=== PATIENT | male | born 1940 | race Caucasian/White ===

== ENCOUNTER 2024-06-08 19:36 | Observation (INO) ==
[2024-06-08] MEDS ORDERED: IOPAMIDOL 100 ML BOTTLE IV ONE ×2 (19:37→21:57)
[2024-06-08] MEDS: fentaNYL 100 MCG/2 ML VIAL IV ONE (20:08)
[2024-06-08 20:21] LABS: Basophils # (Auto) 0.02 K/mcL (0.00-0.30); Basophils % (Auto) 0.4 % (0.0-2.0); Eosinophils # (Auto) 0.14 K/mcL (0.00-0.70); Eosinophils % (Auto) 2.8 % (0.0-7.0); Hematocrit 32.7 % (40.1-51.0); Lymphocytes # (Auto) 1.57 K/mcL (1.50-4.80); Lymphocytes % (Auto) 31.2 % (15.5-49.0); Mean Cell Volume 89.6 fL (80.0-100.0); Mean Corpuscular HGB Conc 30.6 g/dL (31.0-36.0); Mean Platelet Volume 10.8 fL (8.8-12.5); Monocytes # (Auto) 0.65 K/mcL (0.10-0.90); Monocytes % (Auto) 12.9 % (1.0-12.0); Neutrophils % (Auto) 51.9 % (38.0-78.0); Platelet Count 220 K/mcL (140-440); RBC 3.65 M/mcL (4.63-6.08); Red Cell Distribution Width 18.3 % (11.5-14.5)
[2024-06-08 20:33] LABS: ALT/SGPT 28 U/L (<40); AST/SGOT 38 U/L (<40); Albumin 4.3 gm/dL (3.2-5.2); Albumin/Globulin Ratio 1.8 (1.0-2.3); Alkaline Phosphatase 113 U/L (39-117); Bilirubin,Total < 0.2 mg/dL (0.1-1.0); Blood Urea Nitrogen 13 mg/dL (8-23); Carbon Dioxide 22 mmol/L (22-30); Chloride 102 mmol/L (96-108); Globulin 2.4 gm/dL (2.2-3.7); Glomerular Filtration Rate 68; Glucose 163 mg/dL (70-105); Potassium 3.7 mmol/L (3.3-5.1); Sodium 138 mmol/L (133-145)
[2024-06-08] MEDS: morphine 10 MG/ML VIAL IV ONE (20:57)
[2024-06-08] MEDS ORDERED: ONDANSETRON 4 MG/2 ML VIAL IV PRN ×2 (21:16)
[2024-06-08] MEDS: PANTOPRAZOLE 40 MG VIAL IV ONE (21:31)
[2024-06-08] MEDS: 0.9 % SODIUM CHLORIDE 1,000 ML IV SCH (21:33)
[2024-06-08] MEDS: ACETAMINOPHEN 1,000 MG/100 ML BAG IV SCH (21:40)
[2024-06-09 06:03] LABS: Basophils # (Auto) 0.03 K/mcL (0.00-0.30); Basophils % (Auto) 0.4 % (0.0-2.0); Eosinophils # (Auto) 0.12 K/mcL (0.00-0.70); Eosinophils % (Auto) 1.7 % (0.0-7.0); Hematocrit 29.5 % (40.1-51.0); Hemoglobin 8.9 g/dL (13.7-17.5); Lymphocytes # (Auto) 1.35 K/mcL (1.50-4.80); Lymphocytes % (Auto) 19.3 % (15.5-49.0); Mean Cell Volume 90.8 fL (80.0-100.0); Mean Corpuscular HGB Conc 30.2 g/dL (31.0-36.0); Mean Platelet Volume 11.2 fL (8.8-12.5); Monocytes % (Auto) 14.3 % (1.0-12.0); Neutrophils % (Auto) 63.7 % (38.0-78.0); Platelet Count 184 K/mcL (140-440); RBC 3.25 M/mcL (4.63-6.08); Red Cell Distribution Width 18.3 % (11.5-14.5)
[2024-06-09 06:20] LABS: ALT/SGPT 26 U/L (<40); AST/SGOT 38 U/L (<40); Albumin 3.7 gm/dL (3.2-5.2); Albumin/Globulin Ratio 2.2 (1.0-2.3); Alkaline Phosphatase 92 U/L (39-117); Bilirubin,Direct < 0.2 mg/dL (0-0.3); Bilirubin,Total < 0.2 mg/dL (0.1-1.0); Blood Urea Nitrogen 16 mg/dL (8-23); Calcium 8.4 mg/dL (8.6-10.4); Carbon Dioxide 22 mmol/L (22-30); Chloride 105 mmol/L (96-108); Globulin 1.7 gm/dL (2.2-3.7); Glomerular Filtration Rate 77; Glucose 129 mg/dL (70-105); Lactate Dehydrogenase 201 U/L (135-225); Phosphorous 3.6 mg/dL (2.5-4.5); Potassium 4.2 mmol/L (3.3-5.1); Sodium 140 mmol/L (133-145); Triglycerides 235 mg/dL (<150); Uric Acid 7.7 mg/dL (2.5-8.0)
[2024-06-09] MEDS: fentaNYL 100 MCG/2 ML VIAL IV PRN (08:16)
[2024-06-09] MEDS: METHOCARBAMOL 1,000 MG/10 ML VIAL IV ONE (15:30)
[2024-06-09 15:36] VITALS: TEMP 97.6
[2024-06-09] MEDS: 0.9 % SODIUM CHLORIDE 250 ML IV SCH (16:03)
[2024-06-09 19:06] VITALS: O2SAT 99
== END 2024-06-09 19:03 | disposition home or self-care (01) ==
LOC: ED 19:36 → MEDSUR 19:36
PROVIDERS: ADMIT Family Medicine Adult Medicine; ATTEND Family Medicine Adult Medicine